=== PATIENT | female | born 1935 | race Caucasian/White ===

== ENCOUNTER 2018-10-24 13:59 | Inpatient (IN) | payer MEDICARE, MEDICAID ==
[~2018-10-24] VITALS: Ht 160 cm; Wt 71.8 kg
[~2018-10-24 13:59] MED LIST: ALBU8.5H8 INH; EZET10TA14 PO; KEN0.1O TP; LISI-604 PO; NATE60TA PO; NITR0.4T48 SL; NYST1000 PO; OMEG1CAP46 PO; WARF3TAB56 PO
--- NOTE | 2018-10-24 14:19 | NUR ---
DR ALVES MADE AWARE OF PATIENT STATUS, EKG ORDER ENTERED.
[2018-10-24 14:46] LABS: BASOPHILS # (AUTO) 0.1 X10'3 (0-0.2); BASOPHILS % (AUTO) 0.6 % (0-1); EOSINOPHILS # (AUTO) 0.1 X10'3 (0-0.9); EOSINOPHILS % (AUTO) 0.7 % (0-6); HEMATOCRIT 26.3 % (35.0-45.0); HEMOGLOBIN 9.1 g/dl (12.0-16.0); LYMPHOCYTES # (AUTO) 1.4 X10'3 (1.1-4.8); LYMPHOCYTES % (AUTO) 9.1 % (21-51); MEAN CORPUSCULAR HEMOGLOBIN 30.7 PG (27.0-31.0); MEAN CORPUSCULAR HGB CONC 34.7 g/dL (33.0-36.5); MEAN CORPUSCULAR VOLUME 88.5 FL (78-98); MEAN PLATELET VOLUME 8.3 FL (7.4-10.4); MONOCYTES # (AUTO) 1.3 X10'3 (0-0.9); MONOCYTES % (AUTO) 8.5 % (2-12); NEUTROPHILS # (AUTO) 12.3 X10'3 (1.8-7.7); NEUTROPHILS % (AUTO) 81.1 % (42-75); PLATELET COUNT 419 X10'3 (140-440); RED BLOOD COUNT 2.97 X10'6 (4.20-5.60); WHITE BLOOD COUNT 15.1 X10'3 (4.5-11.0)
[2018-10-24 14:56] LABS: INR 1.4 INR; PARTIAL THROMBOPLASTIN TIME 44 SECONDS (22-32)
[2018-10-24 14:58] LABS: ALANINE AMINOTRANSFERASE 59 U/L (12-78); ALBUMIN 2.3 G/DL (3.4-5.0); ALKALINE PHOSPHATASE 727 IU/L (46-116); ANION GAP 13 (8-16); BILIRUBIN,TOTAL 20.7 MG/DL (0.1-1.0); BLOOD UREA NITROGEN 48 MG/DL (7-18); BUN/CREATININE RATIO 15.9 (6.6-38.0); CALCIUM 10.4 MG/DL (8.5-10.1); CHLORIDE 102 MMOL/L (99-107); CREATININE 3.02 MG/DL (0.40-0.90); LIPASE 81 U/L (73-393); MAGNESIUM 1.7 MG/DL (1.5-2.4); SODIUM 134 MMOL/L (135-145); TOTAL CARBON DIOXIDE 18.6 MMOL/L (24-32); eGFR 15 ML/MIN
[2018-10-24 15:01] LABS: POTASSIUM 4.2 MMOL/L (3.5-5.1)
[2018-10-24 15:13] LABS: ALBUMIN/GLOBULIN RATIO 0.6 (1.1-1.5); ASPARTATE AMINO TRANSFERASE 73 U/L (10-37); GLUCOSE 79 MG/DL (70-104); TOTAL PROTEIN 5.9 G/DL (6.4-8.2)
[2018-10-24 15:18] LABS: CLARITY,URINE CLOUDY (Clear); COLOR,URINE YELLOW (Yellow); GLUCOSE, URINE NEGATIVE (Neg); KETONES,URINE NEGATIVE (Neg); LEUKOCYTE ESTERASE ,URINE LARGE (Neg); NITRITES, URINE NEGATIVE (Neg); OCCULT BLOOD,URINE MODERATE (Neg); PH,URINE 5.5 (4.8-8.0); PROTEIN,URINE 30 mg/dl (Neg); UROBILINOGEN,URINE 0.2 E.U/dL (0.2-1.0)
--- NOTE | 2018-10-24 15:25 | NUR ---
PATIENT INCONTINENT OF STOOL: SMALL AMOUNT: DIAPER REMOVED CLEANED, BM IN VAGINAL OPENING: PATIENT VERY SWOLLEN LABIA, USING STERILE TECHNIQUE, 16 F FC PLACED SECURED TO LEG, BARRIER CREAM APPLIED TO BOTTOM
[2018-10-24 15:39] LABS: BACTERIA,URINE 4+ /HPF (Neg); WBC,URINE TNTC /HPF (0-4)
[2018-10-24 15:43] LABS: RBC,URINE 0-2 /HPF (0-2); SQUAMOUS EPITHELIAL CELL,UR MANY /LPF (FEW)
--- NOTE | 2018-10-24 15:45 | NUR ---
CALLING LAB BACK BECAUSE SOMEONE CALLED FROM LAB AND REJECTED FOR CULTURE; SPOKE TO OLGA STEIN AND IT WILL BE CULTURED: FOUZIA OBTAINED SAMPLE FROM [place] THAT WAS JUST PLACED
[2018-10-24 15:47] LABS: UA COLLECTION TYPE FOLEY CATH
[2018-10-24 15:48] LABS: NEUTROPHILS % (MANUAL) 82 % (42-75); TOTAL CELLS COUNTED 100
[2018-10-24 15:49] LABS: BANDS% (MANUAL) 2 % (0-10); BASOPHILS % (MANUAL) 0 % (0-1); EOSINOPHILS % (MANUAL) 1 % (0-6); LARGE PLATELETS FEW; LYMPHOCYTES % (MANUAL) 8 % (21-51); METAMYLEOCYTES% (MANUAL) 1 % (0-0); MONOCYTES % (MANUAL) 6 % (2-12); PLATELET ESTIMATE NORMAL; POLYCHROMASIA FEW
[2018-10-24 15:50] LABS: ANISOCYTOSIS 2+; HYPOCHROMASIA 2+; SPHEROCYTES FEW; TARGET CELLS 2+
[2018-10-24 15:51] LABS: BURR CELLS 1+; ELLIPTOCYTES FEW; TOXIC GRANULATION 2+; TOXIC VACUOLATION 2+
[2018-10-24 15:52] LABS: SCHISTOCYTES FEW
[2018-10-24] MEDS ORDERED: CefTRIAXone 2gm/D5W 50ml 50 ML IV ONE (15:55)
[2018-10-24] MEDS ORDERED: normal saline 1000ML IV soln IV ONE (16:30)
[2018-10-24] MEDS ORDERED: potassium Cl 40MEQ/NS 500ml 500 ML IV PRN ×2 (17:25)
[2018-10-24] MEDS ORDERED: ondansetron/PF 4mg/2ml inj IV PRN (17:25)
[2018-10-24] MEDS ORDERED: acetaminophen 325mg tablet PO PRN ×2 (17:25)
[2018-10-24] MEDS ORDERED: docusate sod 100mg capsule PO PRN (17:25)
[2018-10-24] MEDS ORDERED: magnesium 2GM in 50ml NS 50 ML IV PRN (17:25)
[2018-10-24] MEDS ORDERED: HYDROcodone/acetaminophen 5mg/325mg tablet PO PRN (17:25)
[2018-10-24] MEDS ORDERED: morphine 4 MG/ML inj SYRINge IV PRN (17:25)
[2018-10-24] MEDS ORDERED: potassium Cl 20 mEq SR tablet PO PRN ×2 (17:25)
[2018-10-24] MEDS ORDERED: magnesium Cl slow-release 64mg tablet PO PRN (17:25)
[2018-10-24] MEDS ORDERED: magnesium 4gm in 100ml NS 100 ML IV PRN (17:25)
[2018-10-24] MEDS ORDERED: DILT120C51 PO (17:27)
[2018-10-24] MEDS ORDERED: LACT10SO PO (17:28)
[2018-10-24] MEDS ORDERED: MULT1CAP44 PO (17:30)
[2018-10-24] MEDS ORDERED: DEXT1DRO6 EACHEYE (17:33)
[2018-10-24] MEDS ORDERED: FAMO-128 PO (17:34)
[2018-10-24] MEDS ORDERED: SENN-162 PO (17:35)
[2018-10-24] MEDS ORDERED: LINA5TAB4 PO (17:36)
[2018-10-24] MEDS ORDERED: TRAM50TA2 PO (17:37)
[2018-10-24] MEDS ORDERED: ONDA4TAB12 PO (17:40)
[2018-10-24] MEDS ORDERED: WARF1TAB83 PO (17:52)
[2018-10-24] MEDS ORDERED: INSU100V11 SQ (17:56)
--- NOTE | 2018-10-24 18:56 | NUR ---
spoke to ish roy from gi lab, and will take patient to gi lab for ercp within the next 30 minutes
--- NOTE | 2018-10-24 19:10 | NUR ---
BERE ODONNELL FROM GI LAB CALLED ERCP TO BE DONE BY DR GONZALEZ ON SUNDAY AM
[2018-10-24] MEDS: lactulose 20gm/30ml cup PO SCH (21:09)
[2018-10-24] MEDS: famotidine 20mg tablet PO SCH (21:09)
[2018-10-24] MEDS: heparin, porcine 5000 units/ml vial SQ SCH (21:09)
[2018-10-24] MEDS: normal saline 1000ml 1,000 ML IV SCH (21:09)
--- NOTE | 2018-10-24 21:55 | NUR ---
Received patient from ED. Report was given from Nanette ODONNELL. Patient came to floor via gurney. Slide board was used to get patient to bed. Call light placed within reach. Vitals taken. Bed locked & low. IV fluids running per MD orders. Villegas draining.
[2018-10-24 22:00] VITALS: BP 164/66
[2018-10-24] MEDS ORDERED: dextrose 50%-water 50ml dispensing syringe IV PRN ×2 (23:45)
[2018-10-24] MEDS ORDERED: dextrose ORAL solution 15 GM/59 ML bottle PO PRN ×2 (23:45)
[2018-10-24] MEDS ORDERED: glucagon, human recombinant 1mg kit SUBCUT PRN (23:45)
[2018-10-24] MEDS ORDERED: insulin Lispro (HumaLOG) vial - multi-dose SQ SCH (23:45)
[2018-10-24] MEDS ORDERED: MESSAGE TO PHARMACY PO ONE (23:45)
[2018-10-25 06:00] VITALS: BP 147/75
--- NOTE | 2018-10-25 06:18 | NUR ---
Problems reprioritized. Patient report given, questions answered & plan of care reviewed with Em ODONNELL.
[2018-10-25 07:26] LABS: BASOPHILS # (AUTO) 0.1 X10'3 (0-0.2); BASOPHILS % (AUTO) 0.6 % (0-1); EOSINOPHILS # (AUTO) 0.1 X10'3 (0-0.9); EOSINOPHILS % (AUTO) 0.6 % (0-6); HEMATOCRIT 24.6 % (35.0-45.0); HEMOGLOBIN 8.4 g/dl (12.0-16.0); LYMPHOCYTES # (AUTO) 1.5 X10'3 (1.1-4.8); LYMPHOCYTES % (AUTO) 9.9 % (21-51); MEAN CORPUSCULAR HEMOGLOBIN 30.1 PG (27.0-31.0); MEAN CORPUSCULAR VOLUME 88.5 FL (78-98); MONOCYTES # (AUTO) 1.7 X10'3 (0-0.9); NEUTROPHILS % (AUTO) 77.9 % (42-75); PLATELET COUNT 386 X10'3 (140-440); RED BLOOD COUNT 2.78 X10'6 (4.20-5.60); RED CELL DISTRIBUTION WIDTH 19.6 % (11.5-14.5); WHITE BLOOD COUNT 15.4 X10'3 (4.5-11.0)
[2018-10-25 07:32] LABS: INR 1.2 INR
[2018-10-25 07:39] LABS: ALANINE AMINOTRANSFERASE 57 U/L (12-78); ALBUMIN/GLOBULIN RATIO 0.6 (1.1-1.5); ALKALINE PHOSPHATASE 624 IU/L (46-116); ANION GAP 14 (8-16); ASPARTATE AMINO TRANSFERASE 70 U/L (10-37); BILIRUBIN,TOTAL 19.2 MG/DL (0.1-1.0); BLOOD UREA NITROGEN 48 MG/DL (7-18); CHLORIDE 108 MMOL/L (99-107); CREATININE 2.67 MG/DL (0.40-0.90); GLUCOSE 80 MG/DL (70-104); MAGNESIUM 1.7 MG/DL (1.5-2.4); POTASSIUM 3.8 MMOL/L (3.5-5.1); SODIUM 139 MMOL/L (135-145); TOTAL CARBON DIOXIDE 17.3 MMOL/L (24-32); TOTAL PROTEIN 5.3 G/DL (6.4-8.2); eGFR 17 ML/MIN
[2018-10-25 07:40] LABS: ANISOCYTOSIS 2+; PLATELET ESTIMATE NORMAL
[2018-10-25 07:41] LABS: TARGET CELLS 1+
[2018-10-25 07:42] LABS: ACANTHOCYTES 1+
[2018-10-25] MEDS ORDERED: warfarin 1mg tablet PO SCH (08:00)
[2018-10-25] MEDS: lactulose 20gm/30ml cup PO SCH ×2 (08:00→19:27)
[2018-10-25] MEDS ORDERED: K and/or MAG REPLACEMENT MC SCH (08:00)
[2018-10-25] MEDS: heparin, porcine 5000 units/ml vial SQ SCH (08:00)
[2018-10-25] MEDS ORDERED: diltiazem CD 120mg capsule (once-daily) PO SCH (08:00)
[2018-10-25] MEDS: famotidine 20mg tablet PO SCH ×2 (08:16→19:25)
[2018-10-25] MEDS: polyvinyl alcohol ophthalmic drops 15ml bottle EACHEYE PRN ×2 (08:16→19:28)
[2018-10-25 10:00] VITALS: BP 135/69
[2018-10-25] MEDS: normal saline 1000ml 1,000 ML IV SCH (10:41)
--- NOTE | 2018-10-25 11:34 | NUR ---
PAGER ID: [phone] Georgina MESSAGE: [phone] Re: Trudy Hilario. Having ERCP at 1500. GI lab called regarding CT showing atelectasis and wondering if we can get RT ordered before procedure.
[2018-10-25] MEDS ORDERED: proCHLORperazine 10 MG/2 ml inj IV PRN (13:30)
[2018-10-25] MEDS ORDERED: hyoscyamine 0.125mg TAB.SUBL SL PRN (13:35)
[2018-10-25] MEDS ORDERED: LORazepam 1 MG tablet PO PRN (13:35)
[2018-10-25] MEDS ORDERED: LORazepam 0.5 MG tablet PO PRN (13:35)
[2018-10-25] MEDS ORDERED: morphine 10mg/0.5ml (conc. morphine) oral syringe PO PRN (13:35)
[2018-10-25] MEDS ORDERED: metoclopramide 5 mg/ml inj IV PRN (13:35)
[2018-10-25] MEDS ORDERED: fentaNYL/PF 50MCG/1 ML 2ML syringe ONE (14:02)
[2018-10-25] MEDS ORDERED: LIDOcaine Viscous 15ml cup ONE (14:04)
[2018-10-25] MEDS ORDERED: glucagon, human recombinant 1mg kit ONE (14:04)
[2018-10-25] MEDS ORDERED: diphenhydrAMINE 50 mg/ml inj ONE (14:04)
[2018-10-25] MEDS ORDERED: MIDAZolam 5mg/5ml vial ONE (14:04)
[2018-10-25] MEDS ORDERED: iohexol 300 MG/1 ML 50ml polymer ONE (14:05)
--- NOTE | 2018-10-25 14:16 | NUR ---
Malnutrition re: Wt loss with decreased appetite. Noted that patient's code status has been changed to DNR with comfort care, no nutrition intervention will be implemented at this time. Will continue to follow per comfort care protocol. Addendum: 10/25/18 at [address] Amended: Links added.
[2018-10-25] MEDS: morphine 10mg/0.5ml (conc. morphine) oral syringe PO PRN ×2 (17:50→20:29)
--- NOTE | 2018-10-25 18:10 | NUR ---
Problems reprioritized. Patient report given, questions answered & plan of care reviewed with Yari Goodman RN.
--- NOTE | 2018-10-25 18:14 | NUR ---
Patient in room ORTHO 4022b. I have received report from BLAS Strickland and had the opportunity to ask questions and assume patient care.
[2018-10-25] MEDS ORDERED: insulin glargine (Lantus) pen - multi-dose SQ SCH (21:00)
[2018-10-25 22:00] VITALS: BP 139/71
--- NOTE | 2018-10-26 06:08 | NUR ---
Problems reprioritized. Patient report given, questions answered & plan of care reviewed with BLAS Strickland.
--- NOTE | 2018-10-26 06:20 | NUR ---
Patient in room ORTHO 4022. I have received report from Yari Goodman RN and had the opportunity to ask questions and assume patient care.
[2018-10-26] MEDS ORDERED: ATI1T PO (07:37)
[2018-10-26] MEDS ORDERED: MORP100S12 PO (07:37)
[2018-10-26] MEDS ORDERED: HYOS0.1277 SL (07:37)
[2018-10-26] MEDS ORDERED: ATI0.5T PO (07:37)
[2018-10-26] MEDS ORDERED: CefTRIAXone 2gm/D5W 50ml 50 ML IV SCH (08:00)
--- NOTE | 2018-10-26 10:00 | NUR ---
Patient transferred back to [facility] at 1000 on hospice/comfort care. All belongings sent with patient. Report called to [facility].
[2018-10-26 15:08] LABS: HBSAG SCREEN Negative (Negative); HEP A AB, IGM Negative (Negative); HEP B CORE AB, IGM Negative (Negative); HEPATITIS C ANTIBODY 0.1 s/co ratio (0.0-0.9)
== END 2018-10-26 10:05 | disposition hospice, inpatient (51) | DRG 435 ==
LOC: ER 13:59 → ED HOLD 17:24 → ORTHO 4S 22:00
PROVIDERS: ADMIT Internal Medicine; ATTEND Family Medicine
DX: C25.9 Malignant neoplasm of pancreas, unspecified (principal); N17.0 Acute kidney failure with tubular necrosis; N39.0 Urinary tract infection, site not specified; J90 Pleural effusion, not elsewhere classified; N18.4 Chronic kidney disease, stage 4 (severe); K86.9 Disease of pancreas, unspecified; D64.9 Anemia, unspecified; D73.5 Infarction of spleen; E11.22 Type 2 diabetes mellitus with diabetic chronic kidney disease; E11.65 Type 2 diabetes mellitus with hyperglycemia; R14.0 Abdominal distension (gaseous); R74.0 Nonspecific elevation of levels of transaminase and lactic acid dehydrogenase [LDH]; R74.8 Abnormal levels of other serum enzymes; I48.2 Chronic atrial fibrillation; E83.52 Hypercalcemia; F41.9 Anxiety disorder, unspecified; I25.10 Atherosclerotic heart disease of native coronary artery without angina pectoris; K59.00 Constipation, unspecified; R79.1 Abnormal coagulation profile; Z66 Do not resuscitate; Z51.5 Encounter for palliative care; Z53.29 Procedure and treatment not carried out because of patient's decision for other reasons; Z79.4 Long term (current) use of insulin; Z88.1 Allergy status to other antibiotic agents; Z88.2 Allergy status to sulfonamides; Z88.8 Allergy status to other drugs, medicaments and biological substances; Z82.3 Family history of stroke
CPT/HCPCS: 36415; 71045; 74176; 80053; 80074; 81001; 82140; 82330; 82948; 83036; 83605; 83690; 83735; 84145; 85025; 85610; 85730; 86301; 87040; 87070; 87088; 93005; 99285; G0378; J0696; J0780; J1200; J1610; J1644; J1815; J2250; J2270; J2405; J3010; J7030; Q9967